=== PATIENT | female | born 1970 | race African-American/Black ===

== ENCOUNTER 2020-08-06 15:34 | Outpatient (CLI) | payer OTHER, SELFPAY | END 2020-08-06 15:35 | disposition home or self-care (01) | LOC: ANHCOVIDVC 15:35 | PROVIDERS: PCP Family Medicine | DX: Z23 Encounter for immunization (principal) | CPT/HCPCS: 0001A; 91300 ==

== ENCOUNTER 2020-08-27 15:33 | Outpatient (CLI) | payer OTHER, SELFPAY | END 2020-08-27 15:34 | disposition home or self-care (01) | LOC: ANHCOVIDVC 15:33 | PROVIDERS: PCP Family Medicine | DX: Z23 Encounter for immunization (principal) | CPT/HCPCS: 0002A; 91300 ==

== ENCOUNTER 2021-10-05 05:34 | Emergency (ER) | payer SELFPAY ==
--- NOTE | ~2021-10-05 | CT_ITS ---
EXAMINATION: CT soft tissue neck wo con DATE: 10/05/2021 07:07 INDICATION: Swelling and pain of right neck TECHNIQUE: Computed tomography (CT) of the neck was performed without intravenous contrast. Automated exposure control and iterative reconstruction technique were employed. Exam dose: 565.57 mGy-cm tot al exam DLP. COMPARISON: None FINDINGS: Asymmetric soft tissue swelling with relatively low attenuation centrally in the right tons illar area consistent with right tonsillar abscess. This mass effect upon the right vallecula and ora l pharyngeal airway. The parotid glands are symmetric and unremarkable. There is asymmetric enlargement of the right submandibular gland with surrounding Normal size and homogeneous density of the thyroid gland. Included upper lung zones are clear. IMPRESSION: Right tonsillar abscess Asymmetric soft tissue swelling and inflammation surrounding right submandibular gland Reviewed, dictated and finalized at [facility]. Reviewed, dictated and finalized at [facility]. IMPRESSION: Right tonsillar abscess Asymmetric soft tissue swelling and inflammation surrounding right submandibula r gland
[2021-10-05 05:43] VITALS: BP 159/93; PULSE 100; RESP 18; TEMP 37.2; O2SAT 100
--- NOTE | 2021-10-05 06:11 | ED.GENADULT ---
HPI - General Adult General Chief complaint: Neck Pain/Injury <Jose Armando Alvarado DO - Last Filed: 10/05/21 07:08> Stated complaint: sore throat and ear pain <Jose Armando Alvarado DO - Last Filed: 10/05/21 07:08> Time Seen by Provider: 10/05/21 05:51 <Jose Armando Alvarado DO - Last Filed: 10/05/21 07:08> History of Present Illness HPI narrative: A 51-year-old female presents emergency room states that on she began with some pain to the right posterior and lateral neck region. Since that time it is migrating around it she feels a lot of fullness and pressure in her right ear as well as swelling to the right side of her neck and facial region. No documented fevers. She is also complaining of very severe sore throat and is difficult for her to open her mouth. States that it hurts when she tries to swallow. She never had anything like this before. Patient does have underlying history of hypertension and diabetes. <Jose Armando Alvarado DO - Last Filed: 10/05/21 07:08> Related Data Allergies/adverse reactions: Allergies Allergy/AdvReac Type Severity Reaction Status Date / Time Penicillins Allergy Unknown Itching Verified 10/05/21 05:46 <Jose Armando Alvarado DO - Last Filed: 10/05/21 07:08> Review of Systems Review of Systems: CONSTITUTIONAL: Denies fever, chills, or sweats. EYES: Denies visual changes, redness, or discharge. ENT: Complaining of pain to her throat especially with swallowing. Also complaining of pain and pressure to the right ear. CARDIOVASCULAR: Denies chest pain, palpitations, or edema. RESPIRATORY: Denies cough or dyspnea. GASTROINTESTINAL: Denies abdominal pain, nausea, vomiting, or diarrhea. GENITOURINARY: Denies dysuria or hematuria. SKIN: Denies rash or itching. MUSCULOSKELETAL: Denies back pain, joint pain, or myalgia. NEUROLOGIC: Denies headache, numbness, or weakness. PSYCHIATRIC: Denies anxiety or depression. <Jose Armando Alvarado DO - Last Filed: 10/05/21 07:08> PMFSH Past Medical History Medical History: Medical History Essential (primary) hypertension Type 2 diabetes mellitus without complications <Jose Armando Alvarado DO - Last Filed: 10/05/21 07:08> Family History Family History: Family History Mother Diabetes mellitus Family history of liver disease Family history of hepatitis Family history of primary malignant neoplasm of liver Father Diabetes mellitus Hypertension Sibling Diabetes mellitus Grandparent Family history of malignant neoplasm <Jose Armando Alvarado DO - Last Filed: 10/05/21 07:08> Social History Social History: Social History Smoking status: Never smoker Alcohol intake: never <Jose Armando Alvarado DO - Last Filed: 10/05/21 07:08> Exam Narrative: APPEARANCE: Mild to moderate distress secondary to pain Head normocephalic and atraumatic. EYES: PERRLA/EOMI, conjunctivae very clear. NOSE: Normal with no drainage EARS: Right TM is slightly dull.. THROAT: Posterior pharynx is erythematous no obvious exudates. She has pain with trying to open her mouth. Unable to open very wide. NECK: Tenderness to palpation and swelling noted from the right submandibular area all the way anteriorly to just below the chin. RESPIRATORY: Airway patent, respirations nonlabored. Clear to auscultation bilaterally, no rales, rhonchi, wheezing. CARDIOVASCULAR: Regular rate and rhythm without murmurs, rubs, or gallops. ABDOMINAL: Soft, nontender, nondistended, no hepatosplenomegaly Musculoskeletal: Moves all extremities. Strength/ROM intact, No edema, No calf tenderness. NEURO: Alert. Cranial nerves II through XII intact. Normal gait. Good coordination. Nonfocal examination. SKIN:: Warm, dry. Normal Color PSYCHIATRIC: Normal affect/mood, normal interaction <Jose Armando Alvarado DO - Last Filed: 09/18
[2021-10-05 06:43] LABS: Basophils Absolute Auto 0.1 K/mm3 (0.0-0.1); Basophils Percent Auto 0.4 % (0.2-1.2); Eosinophils Percent Auto 0.3 % (0-4.4); Hematocrit 32.8 % (37.0-47.0); Hemoglobin 9.8 g/dL (12.0-15.0); Immature Granulocyte Absolute 0.05 K/mm3 (0.00-0.031); Immature Granulocyte Percent A 0.4 % (0-0.5); Lymphocytes Absolute Auto 2.32 K/mm3 (0.9-3.2); Mean Corpuscular HGB Conc 29.9 g/dl (32-36); Mean Corpuscular Hemoglobin 24.4 pg (26-34); Mean Corpuscular Volume 81.8 fl (80-100); Monocytes Absolute Auto 1.1 K/mm3 (0.1-0.6); Monocytes Percent Auto 8.2 % (2.6-8.5); Neutrophils Absolute Auto 9.4 K/mm3 (1.3-6.7); Neutrophils Percent Auto 72.7 % (45.5-73.1); Platelet Count Result 409 k/mm3 (150-375); Red Blood Count 4.01 M/mm3 (4.2-5.4); Red Cell Distribution Width 15.4 % (11.5-14.5); White Blood Count 12.9 K/mm3 (4.5-10.0)
[2021-10-05] MEDS: KETOROLAC 30 MG/ML VIAL (*BKC) IM (06:48)
[2021-10-05 06:59] LABS: Alanine Aminotransferase 15 U/L (6-35); Albumin Level 4.3 g/dL (3.5-5.1); Alkaline Phosphatase 83 U/L (38-126); Anion Gap 6 mmol/L (8-16); Aspartate Amino Transferase 17 U/L (14-36); Bilirubin,Total 0.6 mg/dL (0.2-1.3); Blood Urea Nitrogen 13 mg/dL (7-17); Calcium 8.7 mg/dL (8.4-10.2); Carbon Dioxide 29 mmol/L (22-30); Chloride 104 mmol/L (98-107); Estimated CRCL calculation 71 ml/min; Estimated Glomerular Filt Rate > 60; Glucose 124 mg/dL (65-110); Potassium 3.6 mmol/L (3.4-5.0); Sodium 139 mmol/L (137-145)
[2021-10-05] MEDS: DEXAMETHASONE 4 MG TABLET 8 MG PO (10:01)
[2021-10-05] MEDS: AMPICILLIN SULB 3 GM/NS 100 ML 3 GM/100 ML VIAL IVPB (10:17)
[2021-10-05 11:06] VITALS: BP 143/86; PULSE 80; RESP 18; O2SAT 98
== END 2021-10-05 11:08 | disposition home or self-care (01) ==
PROVIDERS: Emergency Medicine; Emergency Provider Emergency Medicine; PCP Family Medicine
DX: J36 Peritonsillar abscess (principal); I10 Essential (primary) hypertension; E11.9 Type 2 diabetes mellitus without complications; Z79.84 Long term (current) use of oral hypoglycemic drugs
CPT/HCPCS: 36415; 70490; 80053; 85025; 87081; 96365; 96372; 99284; J0295; J1885; J8540